=== PATIENT | female | born 1955 | race Caucasian/White ===

== ENCOUNTER 2017-07-21 14:26 | Emergency (ER) | payer OTHER ==
[~2017-07-21 14:26] MED LIST: Iopamidol 370 76% 100 ML VIAL ONE; Sodium Chloride 0.9% 1,000 ML BAG ONE; Sodium Chloride 0.9% 100 ML BAG ONE
[2017-07-21] MEDS ORDERED: Pantoprazole 40 MG VIAL ONE (15:12)
[2017-07-21] MEDS ORDERED: Ondansetron HCl/PF 4 MG/2 ML Vial ONE (15:12)
[2017-07-21] MEDS ORDERED: Morphine Sulfate 2 MG/ML SYRINGE ONE ×2 (15:12→16:50)
[2017-07-21 15:25] LABS: #Eosinphils 0.1 thou/uL (0.0-0.7); #Lymphocytes 1.7 thou/uL (1.20-3.40); #Monocytes 0.5 thou/uL (0.11-0.59); #Neutrophils 3.6 thou/uL (1.40-6.50); %Basophils 0.6 % (0.0-1.0); %Lymphocytes 28.3 % (21.0-51.0); %Monocytes 8.7 % (0.0-10.0); %Neutrophils 61.4 % (42.0-75.0); Hemoglobin 14.9 g/dL (12.0-16.0); Mean Corpuscular Hemoglobin 31.7 pg (27.0-31.0); Mean Corpuscular Volume 96.2 fl (81.0-99.0); Platelet Count 227 thou/uL (130-400); RBC Distribution Width 12.5 % (11.5-14.5); White Blood Cell (WBC) Count 5.9 thou/uL (4.8-10.8)
[2017-07-21 15:37] LABS: Lactic Acid 0.8 mmol/L (0.5-2.2)
[2017-07-21 15:45] LABS: ALT (SGPT) 28 U/L (8-55); AST (SGOT) 25 U/L (5-34); Alkaline Phosphatase 93 U/L (40-150); Anion Gap 15 mmol/L (10-20); BUN (Urea Nitrogen) 7 mg/dL (9.8-20.1); Bilirubin, Total 0.4 mg/dL (0.2-1.2); Calc. Creatinine Clearance 0 mL/min (70-130); Calcium 9.1 mg/dL (7.8-10.44); Carbon Dioxide 23 mmol/L (23-31); Chloride 109 mmol/L (98-107); Estimated GFR-MDRD 89; Globulin 2.5 g/dL (2.4-3.5); Glucose 95 mg/dL (80-115); Potassium 3.6 mmol/L (3.5-5.1); Protein, Total 6.5 g/dL (6.0-8.3); Sodium 143 mmol/L (136-145)
[2017-07-21 15:46] LABS: CKMB 0.7 ng/mL (0-6.6)
[2017-07-21] MEDS ORDERED: Promethazine HCl 25 MG/ML VIAL ONE (15:48)
[2017-07-21 15:59] LABS: Thyroid Stimulating Hormone 0.6301 uIU/mL (0.35-4.94)
[2017-07-21 16:04] LABS: Troponin I Less than 0.010 ng/mL (< 0.028)
--- NOTE | 2017-07-21 16:42 | CT ---
CT ABDOMEN AND PELVIS WITH CONTRAST 07/21/17 HISTORY: Right upper quadrant abdominal pain. COMPARISON: None. FINDINGS: Lung bases are clear. No pericardial effusion. Too small to characterize hypodensity in hepatic VII, although suggestive of a cyst. Moderate slidin g hiatal hernia. Moderate submucosal edema and thickening of the transverse colon and ascending colo n as well as the cecum. The appendix contains a few appendicoliths, otherwise is normal. Mild mesent gillian stranding of the transverse mesocolon. Aortoiliac contour is normal. No free intraperitoneal gas. There is a 3 mm calculus inferior pole left kidney. There is a few hypodensities that are too small to characterize throughout both kidneys. IMPRESSION: 1. Findings suggestive of colitis of the ascending colon and transverse colon without macroperf oration or abscess. 2. Normal appendix. 3. Too small to characterize hypodensities of both kidneys as well as of the liver in hepatic s egment VII although likely cysts. 4. 3 mm calculus inferior pole left kidney without evidence of recently passed stone. No eviden ce of pyelonephritis. 5. Normal appearance of the gallbladder. POS: [facility]
[2017-07-21] MEDS ORDERED: Dicyclomine HCl 20 mg/2 ml Ampule ONE (16:50)
[2017-07-21 17:46] LABS: Bilirubin Negative (Negative); Blood, Urine Negative (Negative); Clarity Clear (Clear); Glucose, Urine (Dipstick) Negative (Negative); Leukocyte Negative (Negative); Nitrite Negative (Negative); Protein, Urine (Dipstick) Negative (Neg-Trace); Urobilinogen 0.2 mg/dL (0.2-1.0); pH, Urine 6.5 (5.0-9.0)
[2017-07-21 17:54] LABS: Bacteria/HPF Rare-Few HPF (None Seen); RBC/HPF 0-3 HPF (0-3); Squamous Epithelial 0-3 HPF (0-3); WBC/HPF 0-3 HPF (0-3)
[2017-07-22 17:43] LABS: T4 10.8 ug/dL (4.87-11.72)
[2017-07-22 19:53] LABS: Lipase 6 U/L (8-78)
== END 2017-07-21 18:30 | disposition home or self-care (01) ==
LOC: MADERS 14:26
DX: K52.9 Noninfective gastroenteritis and colitis, unspecified (principal); K57.92 Diverticulitis of intestine, part unspecified, without perforation or abscess without bleeding; Z79.899 Other long term (current) drug therapy; Z87.891 Personal history of nicotine dependence
CPT/HCPCS: 74177; 80053; 81001; 82553; 83605; 83690; 83735; 84436; 84443; 84484; 85025; 87086; 93005; 96361; 96365; 96372; 96375; C9113; J2270; J2405; J2550; J7050

== ENCOUNTER 2017-07-23 15:26 | Outpatient (CLI) | payer OTHER | END 2017-07-23 15:27 | disposition home or self-care (01) | LOC: MADLABBHPM 15:26 | PROVIDERS: ATTEND Family Medicine | DX: K52.9 Noninfective gastroenteritis and colitis, unspecified (principal); A09 Infectious gastroenteritis and colitis, unspecified | CPT/HCPCS: 83630; 87015; 87045; 87046; 87081; 87177; 87324; 87449; 87899 ==

== ENCOUNTER 2018-09-08 11:18 | Emergency (ER) | payer BC ==
[2018-09-08] MEDS ORDERED: Morphine 4 MG/ML VIAL ONE (12:39)
--- NOTE | 2018-09-08 12:54 | RAD ---
PA AND LATERAL CHEST: HISTORY: A 63-year-old female with a history of chest injury following a fall two weeks ago. FINDINGS: Mild increased markings in the apices with some minimal bullous changes and apical pleural thickening . Heart size is minimally enlarged. No confluent pneumonia, overt edema, or pleural effusion. IMPRESSION: 1. No significant acute intrathoracic disease. 2. Chronic appearing changes in both apices. 3. No other acute process. 4. No pneumothorax or pleural effusion. POS: [facility]
== END 2018-09-08 13:07 | disposition home or self-care (01) ==
LOC: MADERS 11:18
DX: S22.31XA Fracture of one rib, right side, initial encounter for closed fracture (principal); I34.1 Nonrheumatic mitral (valve) prolapse; Z87.891 Personal history of nicotine dependence; Z79.899 Other long term (current) drug therapy; W01.198A Fall on same level from slipping, tripping and stumbling with subsequent striking against other object, initial encounter
CPT/HCPCS: 71046; 96372; J2270

== ENCOUNTER 2021-03-13 16:17 | Outpatient (CLI) | payer MEDICARE ==
[2021-03-20 14:13] LABS: Routine O & P Final report (.)
[2021-03-29 07:21] LABS: Follow-up Ref Lab Comp? YES
[2021-03-29 07:22] LABS: Follow-up Result - Ref Lab REPORT FAXED
== END 2021-03-13 16:18 | disposition home or self-care (01) ==
LOC: MADLAB 16:17
PROVIDERS: ATTEND Internal Medicine Gastroenterology
DX: R19.7 Diarrhea, unspecified (principal)
CPT/HCPCS: 87177; 87328

== ENCOUNTER 2021-05-29 10:58 | Outpatient (CLI) | payer MEDICARE | END 2021-05-29 10:59 | disposition home or self-care (01) | LOC: MADRAD 10:58 | PROVIDERS: ATTEND Family Medicine | DX: S49.91XA Unspecified injury of right shoulder and upper arm, initial encounter (principal) ==

== ENCOUNTER 2021-07-28 15:07 | Emergency (ER) | payer MEDICARE ==
[~2021-07-28 15:07] MED LIST changes: -Sodium Chloride 0.9% 100 ML BAG ONE
[2021-07-28] MEDS ORDERED: Ondansetron PF 4 MG/2 ML Vial ONE ×2 (15:39→18:10)
[2021-07-28 15:48] LABS: #Lymphocytes 1.2 thou/uL (1.20-3.40); #Monocytes 0.4 thou/uL (0.11-0.59); #Neutrophils 2.5 thou/uL (1.40-6.50); %Eosinophils 0.2 % (0.0-10.0); %Lymphocytes 29.2 % (21.0-51.0); %Monocytes 8.9 % (0.0-10.0); %Neutrophils 60.8 % (42.0-75.0); Hemoglobin 17.2 g/dL (12.0-16.0); Mean Corpuscular HGB CONC 31.4 g/dL (32.0-36.0); Mean Corpuscular Hemoglobin 30.4 pg (27.0-31.0); Mean Corpuscular Volume 96.7 fL (78.0-98.0); Mean Platelet Volume 7.9 fL (7.4-10.4); Platelet Count 155 thou/uL (130-400); RBC Distribution Width 12.4 % (11.5-14.5); Red Blood Cell (RBC) Count 5.67 mill/uL (4.20-5.40); White Blood Cell (WBC) Count 4.1 thou/uL (4.8-10.8)
[2021-07-28 16:01] LABS: ALT (SGPT) 31 U/L (8-55); AST (SGOT) 31 U/L (5-34); Albumin 4.3 g/dL (3.4-4.8); Alkaline Phosphatase 70 U/L (40-110); Anion Gap 18 mmol/L (10-20); BUN (Urea Nitrogen) 8 mg/dL (9.8-20.1); Bilirubin, Total 0.4 mg/dL (0.2-1.2); Calc. Creatinine Clearance 0 mL/min (70-130); Calcium 10.2 mg/dL (7.8-10.44); Carbon Dioxide 23 mmol/L (23-31); Chloride 103 mmol/L (98-107); Globulin 2.5 g/dL (2.4-3.5); Glucose 94 mg/dL (80-115); Lipase 14 U/L (8-78); Magnesium 1.7 mg/dL (1.6-2.6); Potassium 3.9 mmol/L (3.5-5.1); Protein, Total 6.8 g/dL (5.8-8.1); Sodium 140 mmol/L (136-145)
[2021-07-28 17:37] LABS: Bilirubin Negative (Negative); Blood, Urine Negative (Negative); Clarity Clear (Clear); Glucose, Urine (Dipstick) Negative (Negative); Ketone, Urine > or equal to 80 mg/dL (Negative); Leukocyte Negative (Negative); Nitrite Negative (Negative); Protein, Urine (Dipstick) Negative (Neg-Trace); Urobilinogen 0.2 mg/dL (Less than 2)
[2021-07-28] MEDS ORDERED: Morphine 4 MG/ML VIAL ONE (17:56)
[2021-07-28] MEDS ORDERED: Potassium Chloride 20 MEQ TAB ONE (18:10)
== END 2021-07-28 19:12 | disposition home or self-care (01) ==
LOC: MADERS 15:07
DX: E86.0 Dehydration (principal); R11.2 Nausea with vomiting, unspecified; I34.1 Nonrheumatic mitral (valve) prolapse; E05.00 Thyrotoxicosis with diffuse goiter without thyrotoxic crisis or storm; K50.90 Crohn's disease, unspecified, without complications; Z87.891 Personal history of nicotine dependence; Z79.899 Other long term (current) drug therapy
CPT/HCPCS: 36415; 71045; 74177; 80053; 81003; 83690; 83735; 83880; 84484; 85025; 93005; 96374; 96375; 96376; J2270; J2405; J7050; Q9967

== ENCOUNTER 2025-07-12 15:33 | Emergency (ER) | payer MEDICARE ==
[2025-07-12] MEDS ORDERED: Lidocaine 1% PF 5 ML VIAL ONE (16:32)
[2025-07-12] MEDS ORDERED: Bacitracin 1 PK ONE (16:32)
[2025-07-12] MEDS ORDERED: Boostrix 0.5 ML (Tdap) VIAL (>/=7 yrs of age) ONE (16:32)
== END 2025-07-12 17:35 | disposition home or self-care (01) ==
LOC: MADERS 15:33
DX: S92.421A Displaced fracture of distal phalanx of right great toe, initial encounter for closed fracture (principal); Z87.891 Personal history of nicotine dependence; W26.9XXA Contact with unspecified sharp object(s), initial encounter
CPT/HCPCS: 90471; 90715; J0665